=== PATIENT | male | born 1990 | race Caucasian/White ===

== ENCOUNTER 2018-04-25 15:53 | Observation (INO) ==
[2018-04-25] MEDS ORDERED: PANTOPRAZOLE IV 40 MG VIAL IVP ONE (16:02)
[2018-04-25] MEDS ORDERED: ONDANSETRON 4 MG/2 ML VIAL IVP ONE (16:02)
[2018-04-25] MEDS ORDERED: Sodium Chloride 0.9% 1,000 ML PRIMARY IV ONE ×3 (16:02→20:33)
[2018-04-25] MEDS ORDERED: FAMOTIDINE 20 MG/2 ML VIAL IVP ONE (16:02)
[2018-04-25 16:14] LABS: Hematocrit [HCT] 45.7 % (42.0-52.0); Hemoglobin [HGB] 16.8 g/dL (14.0-18.0); MEAN CORPUSCULAR HEMOGLOBIN 32.1 PG (27-31); MEAN CORPUSCULAR HGB CONC 36.8 g/dL (33-37); MEAN CORPUSCULAR VOLUME 87.4 FL (80-90); MEAN PLATELET VOLUME 9.8 FL (7.4-12.2); RED BLOOD COUNT 5.23 10^6/uL (4.70-6.10)
[2018-04-25 16:26] LABS: BLOOD UREA NITROGEN 20 mg/dL (7-22); LIPASE 43 IU/L (23-300); SERUM ALBUMIN 5.4 g/dL (3.5-4.8)
[2018-04-25 16:29] LABS: BAND NEUTROPHILS % 0 % (0-10); BASOPHILS % (MANUAL) 1 % (0-1); EOSINOPHILS % (MANUAL) 0 % (0-8); MONOCYTES % (MANUAL) 2 % (0-12); NEUTROPHILS % (MANUAL) 89 % (50-80)
[2018-04-25 16:30] LABS: PLATELET MORPHOLOGY COMMENT NORMAL MORPHOLOGY (NORM); RBC MORPHOLOGY COMMENT NORMAL MORPHOLOGY (NORM); WBC MORPHOLOGY COMMENT SEE COMMENTS (NORM)
[2018-04-25 17:06] LABS: BILIRUBIN,URINE MODERATE (NEG); CLARITY,URINE CLEAR (CLEAR); COLOR,URINE Other (Y); GLUCOSE, URINE (UA) NEGATIVE (NEG); OCCULT BLOOD,URINE NEGATIVE (NEG); PROTEIN,URINE >300 mg/dl (NEG); UROBILINOGEN,URINE >8.0 EU/dL (0.2)
[2018-04-25 17:18] LABS: URINE SAMPLE TYPE CLEAN CATCH URINE
[2018-04-25 17:19] LABS: AMPHETAMINE SCREEN NEGATIVE (NEG); BACTERIA,URINE RARE; CANNABINOID SCREEN,URINE POSITIVE (NEG); COCAINE SCREEN NEGATIVE (NEG); METHADONE URINE SCREEN NEGATIVE (NEG); METHAMPHETAMINES SCREEN,URINE NEGATIVE (NEG); OPIATE SCREEN,URINE NEGATIVE (NEG); RBC,URINE 0-3 /hpf; SQUAMOUS EPITHELIAL CELL,UR RARE; URINE SAMPLE TYPE CLEAN CATCH URINE; URINE SPECIFIC GRAVITY - MAN 1.025
--- NOTE | 2018-04-25 17:24 | PDOC ---
Abdomen/Flank HPI - General Chief Complaint: Abdomen Pain Stated Complaint: ABDOMINAL PAIN/VOMITING Date Seen by Provider: 04/25/18 Time Seen by Provider: 16:10 Source: POSITIVE: Patient Exam Limitations: POSITIVE: No limitations Nurse's Notes Reviewed & Considered: Yes - History of Present Illness Initial Comments: The patient is a 27-year-old male who is evaluated in the emergency department with complaints of abdominal pain, nausea and vomiting. He states that last night he had onset of cramping abdominal pain associated with nausea and vomiting. He has been unable to keep anything down since then. The pain is primarily in the upper abdomen. He has not had any associated diarrhea. He denies any blood in his emesis. He has not had any associated fevers or chills. He does feel significantly dehydrated. He does report some alcohol use 2 days ago. He admits to using marijuana however denies any other illicit drug use. He has not had any prior abdominal surgeries. He denies significant medical history otherwise. - Patient Home Medications Home Medications: Home Medications NK 04/25/18 - Patient Allergies Allergies/Adverse Reactions: Allergies 3 Allergy/AdvReac Type Severity Reaction Status Date / Time No Known Allergies Allergy Verified 04/25/18 20:58 Past Medical History - heen HEENT History: Denies History Cardiovascular History: Denies History Respiratory History: Denies History Gastrointestinal History: Denies History Genitourinary History: Denies History Endocrine History: Denies History Musculoskeletal History: Denies History Prosthesis or Implant: No Neurological History: Denies History Blood Disorders: Denies History Psychiatric History: Denies History History of Sexually Transmitted Diseases: No Male Reproductive History: Denies History Cancer History: Denies History In Past Year Been Physically Harmed or Verbally Threatened: No History of MDRO: No History of Other Communicable Diseases: No Tobacco Use: Current Every Day Smoker In the Past 12 Months, Have Used or Abuse Any Substance: Marijuana Past Medical History Reviewed: Reviewed - No Changes ROS - Limitations ROS Limitations: No Limitations Constitution: DENIES: Chills, Fever Cardiovascular: REPORTS: Denies Cardiac Symptoms Respiratory: REPORTS: Denies Resp Symptoms Neurological: DENIES: Headache, Numbness, Weakness Gastrointestinal: REPORTS: Abdominal Pain, Nausea, Vomitting. DENIES: Diarrhea , Black Stools, Bloody Stools, Constipation Musculoskeletal: REPORTS: Denies MS Symptoms Genitourinary: REPORTS: Denies Symptoms Eyes: REPORTS: Denies Symptoms ENT: REPORTS: Denies Symptoms Skin: DENIES: Rash Abdominal/Flank Pain PE - General Appearance General Appearance: POSITIVE: Alert, Cooperative, No Acute Distress - HEENT HEENT: POSITIVE: Head Inspection Nml, Eyes Inspection Nml, Ears Inspection Nml, Nose Inspection Nml, Pharynx Inspect. Nml, PERRL, EOMI, Dry Mucous Membranes - Respiratory Respiratory: POSITIVE: No Respiratory Distress, Breath Sounds Normal - Cardiovascular Cardiovascular: POSITIVE: Regular Rate and Rhythm, Heart Sounds Normal Peripheral Pulses: Dorsalis-pedis (R): 2+, Dorsalis-pedis (L): 2+ - Abdomen Abdomen: Soft: (All Quadrants), Normal Bowel Sounds: (All Quadrants), No Guarding: (All Quadrants), No Rebound: (All Quadrants), No Distention: (All Quadrants) Additional Abdominal Details: He does have tenderness primarily in the epigastric region without guarding or rebound tenderness - Skin Skin: POSITIVE: Intact, No Rash - Extremities Extremity: Normal ROM: (All Extremities), Normal Inspection: (All Extremities) - Neurological Neurological: POSITIVE: Oriented X3, Motor Normal, Sensation Normal Abdomen Progress - Results Reviewed by me Xrays/CTs/US Reviewed by me: Yes Discussed with Radiologist: Yes Radiology Findings: CT scan of the abdomen and pelvis reveals some possible mild thickening of the colon wall with no evidence of obstruction, questionable thickening of the bladder wall per radiologist. Lab Results Reviewed by Me: Yes CBC and BMP: 04/25/18 15:55 04/25/18 15:55 Lab Results:: Laboratory Results 04/25/18 04/25/18 04/25/18 Range/Units 15:55 15:55 16:45 WBC 12.01 H (4.8-10.8) 10^3/uL RBC 5.23 (4.70-6.10) 10^6/uL Hgb 16.8 (14.0-18.0) g/dL Hct 45.7 (42.0-52.0) % MCV 87.4 (80-90) FL MCH 32.1 H (27-31) PG MCHC 36.8 (33-37) g/dL RDW Std Deviation 40.5 (39-50) fL RDW Coeff of All 12.7 (11.5-14.5) % Plt Count 219 (140-350) 10*3/uL MPV 9.8 (7.4-12.2) FL Neutrophils % (Manual) 89 H (50-80) % Band Neutrophils % 0 (0-10) % Lymphocytes % (Manual) 8 L (10-50) % Monocytes % (Manual) 2 (0-12) % Eosinophils % (Manual) 0 (0-8) % Basophils % (Manual) 1 (0-1) % Metamyelocytes % Not Reportable Myelocytes % Not Reportable Promyelocytes % Not Reportable Blast Cells Not Reportable WBC Morphology Comment See comments (NORM) Plt Morphology Comment Normal morphology (NORM) RBC Morph Comment Normal morphology (NORM) Sodium 141 (135-145) meq/L Potassium 3.3 L (3.8-5.2) meq/L Chloride 105 (98-112) meq/L Carbon Dioxide 20 L (23-33) meq/L Anion Gap 16 (5-20) BUN 20 (7-22) mg/dL Creatinine 0.8 (0.70-1.50) mg/dL Estimated GFR > 60 (>60 ml/min/1.73m(2)) BUN/Creatinine Ratio 25.00 H (6-20) Glucose 141 H (78-110) mg/dL Calculated Osmolality 296.0 H (267-292) mOsm/kg Calcium 10.1 (8.7-10.7) mg/dL Magnesium 1.7 (1.6-2.4) mg/dL Total Bilirubin 1.5 H (0.3-1.2) mg/dL AST 22 (21-57) IU/L ALT 38 (21-72) IU/L Alkaline Phosphatase 105 (38-126) IU/L C-Reactive Protein < 0.5 (0.0-0.9) mg/dL Total Protein 8.2 H (6.1-8.0) g/dL Albumin 5.4 H (3.5-4.8) g/dL Globulin 2.8 (2.50-4.10) g/dL Albumin/Globulin Ratio 1.90 (1.3-2.0) mg/g Amylase 102 (30-110) U/L Lipase 43 (23-300) IU/L Ur Collection Type Clean catch urine Urine Color Other (Y) Urine Clarity Clear (CLEAR) Urine pH 7.0 (5.0-8.5) Ur Specific [place] 1.025 (1.005-1.030) U Specif Grav (Refrac) Urine Protein >300 A (NEG) mg/dl Urine Glucose (UA) Negative (NEG) mg/dL Urine Ketones >=160 (NEG) Urine Occult Blood Negative (NEG) Urine Nitrate Negative (NEG) Urine Bilirubin Moderate (NEG) Urine Urobilinogen >8.0 (0.2) EU/dL Ur Leukocyte Esterase Negative (NEG) Urine RBC 0-3 (NONE) /hpf Urine WBC 3-5 (NONE) Ur Squamous Epith Cells Rare (NONE) Ur Renal Epithelial Cell None (NONE) Urine Crystals None Urine Bacteria Rare (NONE) Urine Casts None (NONE) Urine Mucus Many (NONE) Urine Trichomonas None (NONE) Urine Yeast None (NONE) Ur Culture Indicated? Culture not set Urine Opiates Screen (NEG) Ur Buprenorphine (NEG) Ur Oxycodone Screen (NEG) Urine Methadone Screen (NEG) Ur Propoxyphene Screen (NEG) Barbiturate Screen (NEG) U Tricyclic Antidepress (NEG) Phencyclidine Screen (NEG) Amphetamines Screen (NEG) U Methamphetamines Scrn (NEG) Benzodiazepines Screen (NEG) Cocaine Screen (NEG) U Marijuana (THC) Screen (NEG) 04/25/18 Range/Units 16:45 WBC (4.8-10.8) 10^3/uL RBC (4.70-6.10) 10^6/uL Hgb (14.0-18.0) g/dL Hct (42.0-52.0) % MCV (80-90) FL MCH (27-31) PG MCHC (33-37) g/dL RDW Std Deviation (39-50) fL RDW Coeff of All (11.5-14.5) % Plt Count (140-350) 10*3/uL MPV (7.4-12.2) FL Neutrophils % (Manual) (50-80) % Band Neutrophils % (0-10) % Lymphocytes % (Manual) (10-50) % Monocytes % (Manual) (0-12) % Eosinophils % (Manual) (0-8) % Basophils % (Manual) (0-1) % Metamyelocytes % Myelocytes % Promyelocytes % Blast Cells WBC Morphology Comment (NORM) Plt Morphology Comment (NORM) RBC Morph Comment (NORM) Sodium (135-145) meq/L Potassium (3.8-5.2) meq/L Chloride (98-112) meq/L Carbon Dioxide (23-33) meq/L Anion Gap (5-20) BUN (7-22) mg/dL Creatinine (0.70-1.50) mg/dL Estimated GFR (>60 ml/min/1.73m(2)) BUN/Creatinine Ratio (6-20) Glucose (78-110) mg/dL Calculated Osmolality (267-292) mOsm/kg Calcium (8.7-10.7) mg/dL Magnesium (1.6-2.4) mg/dL Total Bilirubin (0.3-1.2) mg/dL AST (21-57) IU/L ALT (21-72) IU/L Alkaline Phosphatase (38-126) IU/L C-Reactive Protein (0.0-0.9) mg/dL Total Protein (6.1-8.0) g/dL Albumin (3.5-4.8) g/dL Globulin (2.50-4.10) g/dL Albumin/Globulin Ratio (1.3-2.0) mg/g Amylase (30-110) U/L Lipase (23-300) IU/L Ur Collection Type Clean catch urine Urine Color (Y) Urine Clarity (CLEAR) Urine pH (5.0-8.5) Ur Specific [place] (1.005-1.030) U Specif Grav (Refrac) 1.025 Urine Protein (NEG) mg/dl Urine Glucose (UA) (NEG) mg/dL Urine Ketones (NEG) Urine Occult Blood (NEG) Urine Nitrate (NEG) Urine Bilirubin (NEG) Urine Urobilinogen (0.2) EU/dL Ur Leukocyte Esterase (NEG) Urine RBC (NONE) /hpf Urine WBC (NONE) Ur Squamous Epith Cells (NONE) Ur Renal Epithelial Cell (NONE) Urine Crystals Urine Bacteria (NONE) Urine Casts (NONE) Urine Mucus (NONE) Urine Trichomonas (NONE) Urine Yeast (NONE) Ur Culture Indicated? Urine Opiates Screen Negative (NEG) Ur Buprenorphine Negative (NEG) Ur Oxycodone Screen Negative (NEG) Urine Methadone Screen Negative (NEG) Ur Propoxyphene Screen Negative (NEG) Barbiturate Screen Negative (NEG) U Tricyclic Antidepress Negative (NEG) Phencyclidine Screen Negative (NEG) Amphetamines Screen Negative (NEG) U Methamphetamines Scrn Negative (NEG) Benzodiazepines Screen Negative (NEG) Cocaine Screen Negative (NEG) U Marijuana (THC) Screen Positive H (NEG) - Patient's Progress MDM / ED Course: The patient did appear to be significantly dehydrated on arrival. An IV was established and the patient did receive 1 L bolus of normal saline as well as Zofran 4 mg IV, Protonix 40 mg IV and Pepcid 20 mg IV. After the initial liter the patient was still having some primarily upper abdominal pain. His white count was slightly elevated at 12. Amylase, lipase and liver enzymes were unremarkable. His potassium is slightly low at 3.3. His urine was quite concentrated and has greater than 160 ketones. He was given a second liter of fluid and CT scan of the abdomen and pelvis was ordered. The patient had continued pain and received morphine 2 mg IV. He still had continued pain and started vomiting again and received Compazine [address] scan of the abdomen and pelvis shows some possible mild thickening of the colon wall as well as some possible thickening of the bladder, no other acute findings per radiologist. At this point it appears that the patient most likely has gastritis or even a gastroenteritis with associated significant dehydration. He is still feeling quite miserable and decision was made to admit the patient for continued hydration and monitoring. Dr. Carty has agreed to admit the patient. - Consult Counseled: POSITIVE: Patient, Family, RE: Lab Results, RE: Radiology Results, RE : DX Patient Care Time - Estimated PCT Patient Care Time (In Minutes): 35 Vital Signs - Recent Vital Signs Vital Signs: Vital Signs (Last 8 hours) Temp Pulse Resp Pulse Ox 04/25/18 16:08 96 F L 78 36 H 100 - VS Reviewed Vital Signs Reviewed: Yes Discharge Clinical Impression: Hypokalemia, Dehydration Nausea and vomiting Qualifiers: Vomiting type: unspecified Vomiting Intractability: non-intractable Qualified Code(s): R11.2 - Nausea with vomiting, unspecified Discharge Disposition: Admit to Observation Condition: Good
[2018-04-25] MEDS ORDERED: MORPHINE SULFATE 2 MG/1 ML IVP ONE (18:25)
--- NOTE | 2018-04-25 18:57 | DI ---
EXAM: CT Abdomen and Pelvis With Intravenous Contrast CLINICAL HISTORY: ITS.REASON abdominal pain, elevated WBC Physician Notes: Tech Comments: TECHNIQUE: Axial computed tomography images of the abdomen and pelvis with intravenous contrast. COMPARISON: No relevant prior studies available. FINDINGS: Lung bases: No acute findings. ABDOMEN: Liver: Unremarkable. Gallbladder and bile ducts: Unremarkable. Pancreas: Unremarkable. Spleen: Unremarkable. Adrenals: Unremarkable. Kidneys and ureters: Unremarkable. No hydronephrosis. Stomach and bowel: Areas of mild colonic wall thickening or underdistention. No evidence of bowel obstruction. Appendix: Appendix not well visualized. Tubular structure in the right lower quadrant may represent a normal caliber appendix. Repeat study with enteric contrast may better assess if clinically warranted.. PELVIS: Bladder: Bladder wall thickening. Reproductive: Unremarkable as visualized. ABDOMEN and PELVIS: Intraperitoneal space: No free air. No significant fluid collection. Bones/joints: Unremarkable. Soft tissues: Unremarkable. Vasculature: Unremarkable. Lymph nodes: Unremarkable. IMPRESSION: 1. Bladder wall thickening. Correlate with urinalysis for cystitis. 2. Areas of mild colonic wall thickening or underdistention.
[2018-04-25] MEDS ORDERED: Prochlorperazine Edisylate Inj 10mg/2ml vial IVP ONE (19:25)
[2018-04-25] MEDS ORDERED: Magnesium Sulfate 2gm (Premix) 2 GM/50 ML BAG IV ONE (20:33)
[2018-04-25] MEDS ORDERED: Prochlorperazine Edisylate Inj 10mg/2ml vial IVP PRN (20:33)
[2018-04-25] MEDS ORDERED: ONDANSETRON 4 MG/2 ML VIAL IVP PRN (20:33)
[2018-04-25] MEDS ORDERED: LIDOCAINE W/ SODIUM BICARB 0.5 ML SYR SUBD PRN (20:33)
--- NOTE | 2018-04-25 20:44 | PDOC ---
HPI - History of Present Illness Date of Service: 04/25/18 Time of Service: 20:39 Chief Complaint: Nausea and vomiting History of Present Illness: This very pleasant 27-year-old male who admits to me that he smokes marijuana on a daily basis although he is held off since he is up here visiting from [place], with no medical problems otherwise, who presented with nausea and vomiting today. He states that he was with his mom and dad visiting his brother in [place], and as they were heading back home to [place], [place], the patient developed nausea and vomiting. He vomited all the way down here. He states that he drink fairly heavily recently and he does not normally do that. His mother felt that it was related to stress according to the patient. He has not had any fever, chills, abdominal pain, diarrhea, chest pain, shortness breath, or other symptoms. In the emergency room he was given antiemetics and he continued to vomit but the patient does state he is feeling a little bit better after that. He's never had nausea and vomiting this bad before. He states that he gets his marijuana from the dispensary's in [place] and does not buy off the street. Past Medical History Medical History: 1. Tobacco abuse. 2. Marijuana abuse. 3. 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 Past Social History: Smokes tobacco and marijuana. Occasionally drinks alcohol upwards of 2-3 times per year. Works with a [employer] and [place], [place]. Has children, is single. Tobacco Use: Current Every Day Smoker In the Past 12 Months, Have Used or Abuse Any of the Following Substance: Marijuana Alcohol Use: Occasionally Medication / Allergies Home Medications: Home Medications 3 Medication Instructions Recorded Confirmed Type NK 04/25/18 04/25/18 History Allergies/Adverse Reactions: Allergies 3 Allergy/AdvReac Type Severity Reaction Status Date / Time No Known Allergies Allergy Unverified 04/25/18 16:02 Review of Systems - Review of Systems All Systems: Reviewed & No Additional Complaints Except as Stated (I did a 12 point review systems and it was negative other than that discussed in history present illness.) Exam - Vitals Vital Signs: Vital Signs Temperature 96 F Temperature Source Temporal Artery Scan Pulse Rate [Pulse Oximeter] 78 Respiratory Rate 36 Pulse Ox 100 Oxygen Delivery Method Room Air Height 6 ft 2 in Weight 165 lb - General General Appearance: No Acute Distress, Cooperative, Thin - Head Head Exam: Normal Inspection, Normocephalic, Atraumatic - Eye Eye Exam: POSITIVE: No Scleral Icterus - ENT ENT Exam: POSITIVE: Mucous Membranes Dry - Neck Neck Exam: Normal Inspection, No Tenderness, No Lymphadenopathy, No Thyromegaly , JVP is not Raised - Respiratory Respiratory Exam: POSITIVE: Clear to Auscultation - Bilaterally, Breathing Non Labored, Normal to Percussion and Palpation - Cardiovascular Cardiovascular Exam: POSITIVE: RRR, No Murmur, No Clicks, No Gallops, No Rubs, No JVD - GI/Abdominal GI/Abdominal Exam: POSITIVE: Normal Bowel Sounds, Non Tender, Non Distended, Soft, No Hepatomegaly, No Splenomegaly - Rectal Rectal Exam: POSITIVE: Deferred - External Exam: POSITIVE: Deferred Exam: POSITIVE: Deferred - Extremities Extremities Exam: POSITIVE: No Clubbing Present, No Edema Present, No Cyanosis Present - Back Back Exam: POSITIVE: No CVA Tenderness - Neurological Neurological Exam: POSITIVE: Alert, Oriented x 3, Normal Gait, No Facial Droop, Speech Intact / Clear, Moves All Extremities Equally - Psychiatric Psychiatric Exam: POSITIVE: Anxious - Integumentary Integumentary Exam: POSITIVE: Normal Color, Warm, Dry, Intact Additional Integumentary Exam Details: Multiple tattoos Results - Labs CBC and BMP: 04/25/18 15:55 04/25/18 15:55 Additional Lab Results: Laboratory Results 04/25/18 04/25/18 04/25/18 Range/Units 15:55 15:55 16:45 WBC 12.01 H (4.8-10.8) 10^3/uL RBC 5.23 (4.70-6.10) 10^6/uL Hgb 16.8 (14.0-18.0) g/dL Hct 45.7 (42.0-52.0) % MCV 87.4 (80-90) FL MCH 32.1 H (27-31) PG MCHC 36.8 (33-37) g/dL RDW Std Deviation 40.5 (39-50) fL RDW Coeff of All 12.7 (11.5-14.5) % Plt Count 219 (140-350) 10*3/uL MPV 9.8 (7.4-12.2) FL Neutrophils % (Manual) 89 H (50-80) % Band Neutrophils % 0 (0-10) % Lymphocytes % (Manual) 8 L (10-50) % Monocytes % (Manual) 2 (0-12) % Eosinophils % (Manual) 0 (0-8) % Basophils % (Manual) 1 (0-1) % Metamyelocytes % Not Reportable Myelocytes % Not Reportable Promyelocytes % Not Reportable Blast Cells Not Reportable WBC Morphology Comment See comments (NORM) Plt Morphology Comment Normal morphology (NORM) RBC Morph Comment Normal morphology (NORM) Sodium 141 (135-145) meq/L Potassium 3.3 L (3.8-5.2) meq/L Chloride 105 (98-112) meq/L Carbon Dioxide 20 L (23-33) meq/L Anion Gap 16 (5-20) BUN 20 (7-22) mg/dL Creatinine 0.8 (0.70-1.50) mg/dL Estimated GFR > 60 (>60 ml/min/1.73m(2)) BUN/Creatinine Ratio 25.00 H (6-20) Glucose 141 H (78-110) mg/dL Calculated Osmolality 296.0 H (267-292) mOsm/kg Calcium 10.1 (8.7-10.7) mg/dL Magnesium 1.7 (1.6-2.4) mg/dL Total Bilirubin 1.5 H (0.3-1.2) mg/dL AST 22 (21-57) IU/L ALT 38 (21-72) IU/L Alkaline Phosphatase 105 (38-126) IU/L C-Reactive Protein < 0.5 (0.0-0.9) mg/dL Total Protein 8.2 H (6.1-8.0) g/dL Albumin 5.4 H (3.5-4.8) g/dL Globulin 2.8 (2.50-4.10) g/dL Albumin/Globulin Ratio 1.90 (1.3-2.0) mg/g Amylase 102 (30-110) U/L Lipase 43 (23-300) IU/L Ur Collection Type Clean catch urine Urine Color Other (Y) Urine Clarity Clear (CLEAR) Urine pH 7.0 (5.0-8.5) Ur Specific [place] 1.025 (1.005-1.030) U Specif Grav (Refrac) Urine Protein >300 A (NEG) mg/dl Urine Glucose (UA) Negative (NEG) mg/dL Urine Ketones >=160 (NEG) Urine Occult Blood Negative (NEG) Urine Nitrate Negative (NEG) Urine Bilirubin Moderate (NEG) Urine Urobilinogen >8.0 (0.2) EU/dL Ur Leukocyte Esterase Negative (NEG) Urine RBC 0-3 (NONE) /hpf Urine WBC 3-5 (NONE) Ur Squamous Epith Cells Rare (NONE) Ur Renal Epithelial Cell None (NONE) Urine Crystals None Urine Bacteria Rare (NONE) Urine Casts None (NONE) Urine Mucus Many (NONE) Urine Trichomonas None (NONE) Urine Yeast None (NONE) Ur Culture Indicated? Culture not set Urine Opiates Screen (NEG) Ur Buprenorphine (NEG) Ur Oxycodone Screen (NEG) Urine Methadone Screen (NEG) Ur Propoxyphene Screen (NEG) Barbiturate Screen (NEG) U Tricyclic Antidepress (NEG) Phencyclidine Screen (NEG) Amphetamines Screen (NEG) U Methamphetamines Scrn (NEG) Benzodiazepines Screen (NEG) Cocaine Screen (NEG) U Marijuana (THC) Screen (NEG) 04/25/18 Range/Units 16:45 WBC (4.8-10.8) 10^3/uL RBC (4.70-6.10) 10^6/uL Hgb (14.0-18.0) g/dL Hct (42.0-52.0) % MCV (80-90) FL MCH (27-31) PG MCHC (33-37) g/dL RDW Std Deviation (39-50) fL RDW Coeff of All (11.5-14.5) % Plt Count (140-350) 10*3/uL MPV (7.4-12.2) FL Neutrophils % (Manual) (50-80) % Band Neutrophils % (0-10) % Lymphocytes % (Manual) (10-50) % Monocytes % (Manual) (0-12) % Eosinophils % (Manual) (0-8) % Basophils % (Manual) (0-1) % Metamyelocytes % Myelocytes % Promyelocytes % Blast Cells WBC Morphology Comment (NORM) Plt Morphology Comment (NORM) RBC Morph Comment (NORM) Sodium (135-145) meq/L Potassium (3.8-5.2) meq/L Chloride (98-112) meq/L Carbon Dioxide (23-33) meq/L Anion Gap (5-20) BUN (7-22) mg/dL Creatinine (0.70-1.50) mg/dL Estimated GFR (>60 ml/min/1.73m(2)) BUN/Creatinine Ratio (6-20) Glucose (78-110) mg/dL Calculated Osmolality (267-292) mOsm/kg Calcium (8.7-10.7) mg/dL Magnesium (1.6-2.4) mg/dL Total Bilirubin (0.3-1.2) mg/dL AST (21-57) IU/L ALT (21-72) IU/L Alkaline Phosphatase (38-126) IU/L C-Reactive Protein (0.0-0.9) mg/dL Total Protein (6.1-8.0) g/dL Albumin (3.5-4.8) g/dL Globulin (2.50-4.10) g/dL Albumin/Globulin Ratio (1.3-2.0) mg/g Amylase (30-110) U/L Lipase (23-300) IU/L Ur Collection Type Clean catch urine Urine Color (Y) Urine Clarity (CLEAR) Urine pH (5.0-8.5) Ur Specific [place] (1.005-1.030) U Specif Grav (Refrac) 1.025 Urine Protein (NEG) mg/dl Urine Glucose (UA) (NEG) mg/dL Urine Ketones (NEG) Urine Occult Blood (NEG) Urine Nitrate (NEG) Urine Bilirubin (NEG) Urine Urobilinogen (0.2) EU/dL Ur Leukocyte Esterase (NEG) Urine RBC (NONE) /hpf Urine WBC (NONE) Ur Squamous Epith Cells (NONE) Ur Renal Epithelial Cell (NONE) Urine Crystals Urine Bacteria (NONE) Urine Casts (NONE) Urine Mucus (NONE) Urine Trichomonas (NONE) Urine Yeast (NONE) Ur Culture Indicated? Urine Opiates Screen Negative (NEG) Ur Buprenorphine Negative (NEG) Ur Oxycodone Screen Negative (NEG) Urine Methadone Screen Negative (NEG) Ur Propoxyphene Screen Negative (NEG) Barbiturate Screen Negative (NEG) U Tricyclic Antidepress Negative (NEG) Phencyclidine Screen Negative (NEG) Amphetamines Screen Negative (NEG) U Methamphetamines Scrn Negative (NEG) Benzodiazepines Screen Negative (NEG) Cocaine Screen Negative (NEG) U Marijuana (THC) Screen Positive H (NEG) - Imaging Status: Report Reviewed by Me (I looked at the images of the abdominal and pelvic CT scan. I also reviewed the report. No evidence of pancreatitis. The patient has no symptoms on examination that correlate with findings of colon wall inflammation.) Assessment and Plan - Patient Problems (1) Nausea and vomiting Current Visit: Yes Status: Acute Code(s): R11.2 - Nausea with vomiting, unspecified Qualifiers: Vomiting type: unspecified Vomiting Intractability: non-intractable Qualified Code(s): R11.2 - Nausea with vomiting, unspecified (2) Hypokalemia Current Visit: Yes Status: Acute Code(s): E87.6 - Hypokalemia - Assessment / Plan Additional Assessment/Plan Details: Admit the patient for observation IV fluids Potassium repletion Check labs in a.m. Antiemetics I advised the patient to stop marijuana and stop smoking. Patient agreed with the above plan. He is unlikely to stop marijuana and smoking and is pre-contemplative.
[2018-04-25] MEDS: Lactated Ringers 1,000 ML PRIMARY IV SCH (21:53)
[2018-04-26] MEDS: Lactated Ringers 1,000 ML PRIMARY IV SCH (04:58)
[2018-04-26 05:18] LABS: BASOPHILS # (AUTO) 0.02 10*3/UL; BASOPHILS % (AUTO) 0.2 % (0-1); EOSINOPHILS # (AUTO) 0.02 10*3/UL; EOSINOPHILS % (AUTO) 0.2 % (0-8); Hematocrit [HCT] 42.8 % (42.0-52.0); Hemoglobin [HGB] 15.2 g/dL (14.0-18.0); LYMPHOCYTES # (AUTO) 1.68 10*3/uL; MEAN CORPUSCULAR HEMOGLOBIN 32.2 PG (27-31); MEAN CORPUSCULAR HGB CONC 35.5 g/dL (33-37); MEAN CORPUSCULAR VOLUME 90.7 FL (80-90); MEAN PLATELET VOLUME 10.4 FL (7.4-12.2); MONOCYTES # (AUTO) 0.88 10*3/UL (0.3-0.8); MONOCYTES % (AUTO) 7.7 % (5-15); NEUTROPHILS # (AUTO) 8.76 10*3/UL; RED BLOOD COUNT 4.72 10^6/uL (4.70-6.10)
[2018-04-26 05:29] LABS: PLATELET MORPHOLOGY COMMENT NORMAL MORPHOLOGY (NORM); RBC MORPHOLOGY COMMENT NORMAL MORPHOLOGY (NORM); WBC MORPHOLOGY COMMENT NORMAL MORPHOLOGY (NORM)
[2018-04-26 05:36] LABS: BLOOD UREA NITROGEN 15 mg/dL (7-22); BUN/CREATININE RATIO 21.42 (6-20)
[2018-04-26 07:00] VITALS: BP 126/61; RESP 17; TEMP 98.3; O2SAT 94
--- NOTE | 2018-04-26 09:30 | DCSUMMARY ---
Hospitalization Summary Admit Date: 04/25/2018 Discharge Date: 04/26/18 Primary Diagnosis:: nausea and vomiting, resolved Secondary Diagnosis:: Hypokalemia, resolved Hospital Course: This very pleasant 27-year-old male who does not drink often, but drank heavily recently, and smokes marijuana daily as well although he has not had any during his stay in [place], who was with his family in [place] when he developed nausea and vomiting. He was heading back home to [place] but the nausea and vomiting was so severe that he stopped here and went to the emergency room. He was found to be hypokalemic, and despite antiemetics in the emergency room continued to vomit. We admitted him for continued hydration, electrolyte replacement, and antiemetics. His diet was able to be advanced. He tolerated clear liquids without difficulty, as potassium is better, and his symptoms resolved overnight. He has no complaints of chest pain, nausea, vomiting, abdominal pain, or shortness breath and he would like to go home. Assessment and Plan: 1. As per discharge assessments noted 2. Disposition: Patient is discharged home 3. Condition on discharge, stable and improved. 4. Diet: regular diet 5. Activities: resume normal activities, although I have advised him to quit smoking quit the use of marijuana 6. Follow-Up: 1. Primary care physician in [place]. 2. 7. Medications at the Time of Discharge: No medications at the time of discharge Exam - Vitals Vital Signs: Vital Signs Temperature 98.3 F Temperature Source Temporal Artery Scan Pulse Rate [Pulse Oximeter] 99 Pulse Rate 58 Respiratory Rate 17 Blood Pressure [Left Arm] 126/61 Blood Pressure 113/64 Pulse Ox 94 Oxygen Flow Rate 1 Oxygen Delivery Method Room Air Height 6 ft 2 in Weight 150 lb - General General Appearance: No Acute Distress, Cooperative - Eye Eye Exam: POSITIVE: No Scleral Icterus - ENT ENT Exam: POSITIVE: Mucous Membranes Moist - Respiratory Respiratory Exam: POSITIVE: Clear to Auscultation - Bilaterally, Breathing Non Labored - Cardiovascular Cardiovascular Exam: POSITIVE: RRR, No Murmur, No Clicks, No Gallops, No Rubs, No JVD - GI/Abdominal GI/Abdominal Exam: POSITIVE: Normal Bowel Sounds, Non Tender, Non Distended, Soft - Neurological Neurological Exam: POSITIVE: Alert, Oriented x 3, No Facial Droop, Speech Intact / Clear, Moves All Extremities Equally Data Peritnent Studies: Laboratory Results 04/25/18 04/25/18 04/25/18 Range/Units 15:55 15:55 16:45 WBC 12.01 H (4.8-10.8) 10^3/uL RBC 5.23 (4.70-6.10) 10^6/uL Hgb 16.8 (14.0-18.0) g/dL Hct 45.7 (42.0-52.0) % MCV 87.4 (80-90) FL MCH 32.1 H (27-31) PG MCHC 36.8 (33-37) g/dL RDW Std Deviation 40.5 (39-50) fL RDW Coeff of All 12.7 (11.5-14.5) % Plt Count 219 (140-350) 10*3/uL MPV 9.8 (7.4-12.2) FL Immature Gran % (Auto) (0-5) % Neut % (Auto) (50-80) % Lymph % (Auto) (10-50) % Gove % (Auto) (5-15) % Eos % (Auto) (0-8) % Baso % (Auto) (0-1) % Immature Gran # (Auto) 10*3/UL Neut # (Auto) 10*3/UL Lymph # (Auto) 10*3/uL Gove # (Auto) (0.3-0.8) 10*3/UL Eos # (Auto) 10*3/UL Baso # (Auto) 10*3/UL Neutrophils % (Manual) 89 H (50-80) % Band Neutrophils % 0 (0-10) % Lymphocytes % (Manual) 8 L (10-50) % Monocytes % (Manual) 2 (0-12) % Eosinophils % (Manual) 0 (0-8) % Basophils % (Manual) 1 (0-1) % Metamyelocytes % Not Reportable Myelocytes % Not Reportable Promyelocytes % Not Reportable Blast Cells Not Reportable WBC Morphology Comment See comments (NORM) Plt Morphology Comment Normal morphology (NORM) RBC Morph Comment Normal morphology (NORM) Sodium 141 (135-145) meq/L Potassium 3.3 L (3.8-5.2) meq/L Chloride 105 (98-112) meq/L Carbon Dioxide 20 L (23-33) meq/L Anion Gap 16 (5-20) BUN 20 (7-22) mg/dL Creatinine 0.8 (0.70-1.50) mg/dL Estimated GFR > 60 (>60 ml/min/1.73m(2)) BUN/Creatinine Ratio 25.00 H (6-20) Glucose 141 H (78-110) mg/dL Calculated Osmolality 296.0 H (267-292) mOsm/kg Calcium 10.1 (8.7-10.7) mg/dL Magnesium 1.7 (1.6-2.4) mg/dL Total Bilirubin 1.5 H (0.3-1.2) mg/dL AST 22 (21-57) IU/L ALT 38 (21-72) IU/L Alkaline Phosphatase 105 (38-126) IU/L C-Reactive Protein < 0.5 (0.0-0.9) mg/dL Total Protein 8.2 H (6.1-8.0) g/dL Albumin 5.4 H (3.5-4.8) g/dL Globulin 2.8 (2.50-4.10) g/dL Albumin/Globulin Ratio 1.90 (1.3-2.0) mg/g Amylase 102 (30-110) U/L Lipase 43 (23-300) IU/L Ur Collection Type Clean catch urine Urine Color Other (Y) Urine Clarity Clear (CLEAR) Urine pH 7.0 (5.0-8.5) Ur Specific [place] 1.025 (1.005-1.030) U Specif Grav (Refrac) Urine Protein >300 A (NEG) mg/dl Urine Glucose (UA) Negative (NEG) mg/dL Urine Ketones >=160 (NEG) Urine Occult Blood Negative (NEG) Urine Nitrate Negative (NEG) Urine Bilirubin Moderate (NEG) Urine Urobilinogen >8.0 (0.2) EU/dL Ur Leukocyte Esterase Negative (NEG) Urine RBC 0-3 (NONE) /hpf Urine WBC 3-5 (NONE) Ur Squamous Epith Cells Rare (NONE) Ur Renal Epithelial Cell None (NONE) Urine Crystals None Urine Bacteria Rare (NONE) Urine Casts None (NONE) Urine Mucus Many (NONE) Urine Trichomonas None (NONE) Urine Yeast None (NONE) Ur Culture Indicated? Culture not set Urine Opiates Screen (NEG) Ur Buprenorphine (NEG) Ur Oxycodone Screen (NEG) Urine Methadone Screen (NEG) Ur Propoxyphene Screen (NEG) Barbiturate Screen (NEG) U Tricyclic Antidepress (NEG) Phencyclidine Screen (NEG) Amphetamines Screen (NEG) U Methamphetamines Scrn (NEG) Benzodiazepines Screen (NEG) Cocaine Screen (NEG) U Marijuana (THC) Screen (NEG) 04/25/18 04/26/18 04/26/18 Range/Units 16:45 04:12 04:12 WBC 11.37 H (4.8-10.8) 10^3/uL RBC 4.72 (4.70-6.10) 10^6/uL Hgb 15.2 (14.0-18.0) g/dL Hct 42.8 (42.0-52.0) % MCV 90.7 H (80-90) FL MCH 32.2 H (27-31) PG MCHC 35.5 (33-37) g/dL RDW Std Deviation 42.2 (39-50) fL RDW Coeff of All 12.9 (11.5-14.5) % Plt Count 209 (140-350) 10*3/uL MPV 10.4 (7.4-12.2) FL Immature Gran % (Auto) 0.1 (0-5) % Neut % (Auto) 77.0 (50-80) % Lymph % (Auto) 14.8 (10-50) % Gove % (Auto) 7.7 (5-15) % Eos % (Auto) 0.2 (0-8) % Baso % (Auto) 0.2 (0-1) % Immature Gran # (Auto) 0.01 10*3/UL Neut # (Auto) 8.76 10*3/UL Lymph # (Auto) 1.68 10*3/uL Gove # (Auto) 0.88 H (0.3-0.8) 10*3/UL Eos # (Auto) 0.02 10*3/UL Baso # (Auto) 0.02 10*3/UL Neutrophils % (Manual) (50-80) % Band Neutrophils % (0-10) % Lymphocytes % (Manual) (10-50) % Monocytes % (Manual) (0-12) % Eosinophils % (Manual) (0-8) % Basophils % (Manual) (0-1) % Metamyelocytes % Myelocytes % Promyelocytes % Blast Cells WBC Morphology Comment Normal morphology (NORM) Plt Morphology Comment Normal morphology (NORM) RBC Morph Comment Normal morphology (NORM) Sodium 140 (135-145) meq/L Potassium 4.7 D (3.8-5.2) meq/L Chloride 106 (98-112) meq/L Carbon Dioxide 25 (23-33) meq/L Anion Gap 9 (5-20) BUN 15 (7-22) mg/dL Creatinine 0.7 (0.70-1.50) mg/dL Estimated GFR > 60 (>60 ml/min/1.73m(2)) BUN/Creatinine Ratio 21.42 H (6-20) Glucose 105 (78-110) mg/dL Calculated Osmolality 290.0 (267-292) mOsm/kg Calcium 9.1 (8.7-10.7) mg/dL Magnesium (1.6-2.4) mg/dL Total Bilirubin (0.3-1.2) mg/dL AST (21-57) IU/L ALT (21-72) IU/L Alkaline Phosphatase (38-126) IU/L C-Reactive Protein (0.0-0.9) mg/dL Total Protein (6.1-8.0) g/dL Albumin (3.5-4.8) g/dL Globulin (2.50-4.10) g/dL Albumin/Globulin Ratio (1.3-2.0) mg/g Amylase (30-110) U/L Lipase (23-300) IU/L Ur Collection Type Clean catch urine Urine Color (Y) Urine Clarity (CLEAR) Urine pH (5.0-8.5) Ur Specific [place] (1.005-1.030) U Specif Grav (Refrac) 1.025 Urine Protein (NEG) mg/dl Urine Glucose (UA) (NEG) mg/dL Urine Ketones (NEG) Urine Occult Blood (NEG) Urine Nitrate (NEG) Urine Bilirubin (NEG) Urine Urobilinogen (0.2) EU/dL Ur Leukocyte Esterase (NEG) Urine RBC (NONE) /hpf Urine WBC (NONE) Ur Squamous Epith Cells (NONE) Ur Renal Epithelial Cell (NONE) Urine Crystals Urine Bacteria (NONE) Urine Casts (NONE) Urine Mucus (NONE) Urine Trichomonas (NONE) Urine Yeast (NONE) Ur Culture Indicated? Urine Opiates Screen Negative (NEG) Ur Buprenorphine Negative (NEG) Ur Oxycodone Screen Negative (NEG) Urine Methadone Screen Negative (NEG) Ur Propoxyphene Screen Negative (NEG) Barbiturate Screen Negative (NEG) U Tricyclic Antidepress Negative (NEG) Phencyclidine Screen Negative (NEG) Amphetamines Screen Negative (NEG) U Methamphetamines Scrn Negative (NEG) Benzodiazepines Screen Negative (NEG) Cocaine Screen Negative (NEG) U Marijuana (THC) Screen Positive H (NEG) Patient Problems - Patient Problem List (1) Nausea and vomiting Current Visit: Yes Status: Resolved Code(s): R11.2 - Nausea with vomiting, unspecified Qualifiers: Vomiting type: unspecified Vomiting Intractability: non-intractable Qualified Code(s): R11.2 - Nausea with vomiting, unspecified Category: Medical (2) Hypokalemia Current Visit: Yes Status: Resolved Code(s): E87.6 - Hypokalemia Category : Medical
== END 2018-04-26 09:46 | disposition home or self-care (01) ==
LOC: ER 15:53 → MED/SURG 15:53
PROVIDERS: ADMIT Family Medicine; ATTEND Family Medicine